=== PATIENT | male | born 2000 | race Caucasian/White ===

== ENCOUNTER 2022-01-31 20:02 | Outpatient (REF) | payer MEDICAID, SELFPAY ==
[2022-02-02 12:01] LABS: COVID-19 RT-PCR UVMMC Result Negative (Negative)
== END 2022-01-31 20:03 | disposition home or self-care (01) ==
LOC: LBN 20:02
PROVIDERS: Visit Provider Nurse Practitioner Family
DX: Z20.822 Contact with and (suspected) exposure to COVID-19 (principal); R68.89 Other general symptoms and signs
CPT/HCPCS: U0003

== ENCOUNTER → 2023-05-22 18:26 | Outpatient (CLI) | payer BC, MEDICAID, SELFPAY ==
--- NOTE | 2023-05-22 18:30 | DI.RAD_ITS ---
Exam(s) XR TOE LT FIFTH EXAM: XR TOE LT FIFTH CLINICAL HISTORY: r/o fx. TECHNIQUE: 2D digital imaging was performed. COMPARISON: No exams were available for comparison FINDINGS: 3 views There is a fracture on the medial aspect of the head of the proximal phalanx of the 5th toe. This vi olates the articular joint surface. No significant displacement. No radiopaque foreign body. No os seous lesions Incidentally noted is fusion across the DIP joint of the 5th toe. IMPRESSION: Nondisplaced fracture in the medial aspect of the head of the proximal phalanx DATA REPOSITORY: RADIATION DOSE DELIVERED:
== END ==
PROVIDERS: Visit Provider Nurse Practitioner Family
DX: S92.912D Unspecified fracture of left toe(s), subsequent encounter for fracture with routine healing (principal); X58.XXXD Exposure to other specified factors, subsequent encounter
CPT/HCPCS: 73660

== ENCOUNTER 2025-04-22 19:50 | Emergency (ER) | payer SELFPAY ==
[2025-04-22 19:52] VITALS: BP 153/83; PULSE 105; RESP 20; TEMP 36.8; O2SAT 98
--- NOTE | 2025-04-22 20:12 | W.ED.GENAD ---
Discharge Plan Disposition Patient Disposition: Home Condition: Stable Discharge Details Clinical Impression: Cellulitis of left hand Primary Care Provider: Sonia Gipson ED Provider: Frank Billingsley Home Meds and New Rx's Prescriptions: New sulfamethoxazole-trimethoprim 800-160 mg tablet 1 tab PO BID 7 Days Qty: 14 0RF Discharge Instructions Instructions: Sulfamethoxazole and Trimethoprim, Cellulitis (Skin Infection), Adult ED Additional Instructions: You were seen in the emergency department for the infection in your hand, we are starting you on an antibiotic called Bactrim, please take this as directed, watch for signs of increasing infection like increasing redness, drainage of pus from area, red streaking up the arm and fever, please double check with your primary care provider regarding your Tdap status and receive it as soon as possible if you are past 5 years. Discharge Data Discharge Date/Time-TO BE ENTERED AT DEPARTURE: 04/22/25 20:28 HPI General Date/Time Provider Initiated Documentation: 04/22/25 20:06. HPI Narrative: 25 year-old male presents to ED today by POV/ambulating with a chief complaint of brief puncture of metal object to L hand while at work with onset around 1230 today. Quality described as redness to the area, has a tiny puncture without foreign body sensation, no radiation to hernandez erythema, lymphadenitis, numbness/tingling, significant swelling. Severity is described as mild to moderate. Palliating factors include cleaned with soap & water. Provoking factors include nothing specific. Events leading up to the incident/Associated Symptoms: Patient unsure of his Tdap- but wants to check with his PCP before receiving an additional vaccine today. Patient not anticoagulated. Related Data Home Medications ?Medication ?Instructions ?Recorded ?Confirmed sulfamethoxazole 800 1 tab PO BID 7 days #14 tabs 04/22/25 mg-trimethoprim 160 mg tablet Previous Rx's ?Medication ?Instructions ?Recorded sulfamethoxazole 800 1 tab PO BID 7 days #14 tabs 04/22/25 mg-trimethoprim 160 mg tablet Allergies Allergy/AdvReac Type Severity Reaction Status Date / Time No Known Allergies Allergy Verified 05/22/23 17:24 General Stated Complaint: ForeignBody ELLEN: 4 Review of Systems All systems reviewed & are unremarkable except as noted in HPI and below Exam Narrative Exam Narrative: GENERAL APPEARANCE: Well-nourished, non-toxic, awake and alert, atraumatic, no acute distress. 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 EYES: Normal conjunctiva, no exudates on lids/lashes. ENT: Nares patent, no circumoral cyanosis, no facial swelling NECK: Supple, trachea midline, painless cervical ROM. LUNGS/CHEST: Non-labored respirations, normal A/P diameter, symmetrical expansion, no chest wall deformity HEART (CV/PV): No peripheral edema, no JVD. ABDOMEN: Soft, non-distended, no guarding. MSK: Normal ROM, no swelling/deformity to bilateral UEs or LEs, moving all extremities without weakness, no cyanosis, spine midline without tenderness, normal curvature. NEURO: Mental Status AAOx4 - alert to person, place, time, events No facial droop, no forehead involvement. Motor: No focal weakness - strength 5/5 in bilateral UEs and LEs, proximal and distal, symmetric. Sensory: sensation intact to light touch globally. Gait normal: patient ambulated without ataxia into ED room. PSYCH: euthymic, cooperative, pleasant, appropriate speech Course Vital Signs Vital signs: Vital Signs Temperature 36.8 C 04/22/25 19:52 Pulse 105 H 04/22/25 19:52 Respiratory Rate 20 04/22/25 19:52 Blood Pressure 153/83 H 04/22/25 19:52 Pulse Oximetry 98 04/22/25 19:52 Temperature 36.8 C 04/22/25 19:52 Temperature Source Oral 04/22/25 19:52 Pulse 105 H 04/22/25 19:52 Respiratory Rate 20 04/22/25 19:52 Blood Pressure 153/83 H 04/22/25 19:52 Blood Pressure Position Sitting 04/22/25 19:52 Pulse Oximetry 98 04/22/25 19:52 Oxygen Delivery Method Room Air 04/22/25 19:52 Oxygen Flow Rate 0 04/22/25 19:52 Pain Level 2 04/22/25 19:52 Medical Decision Making This dictation utilizes [id number] dictation software and may contain unedited grammatical errors. 25 year-old male presents to ED today by POV/ambulating with a chief complaint of brief puncture of metal object to L hand while at work with onset around 1230 today. Quality described as redness to the area, has a tiny puncture without foreign body sensation, no radiation to hernandez erythema, lymphadenitis, numbness/tingling, significant swelling. Severity is described as mild to moderate. Palliating factors include cleaned with soap & water. Provoking factors include nothing specific. Events leading up to the incident/Associated Symptoms: Patient unsure of his Tdap- but wants to check with his PCP before receiving an additional vaccine today. Patients' medical history: negative, otherwise healthy. Family and social history: noncontributory. Pertinent exam findings / vital signs include tiny puncture at palm of L hand, no hard foreign object to palpation, mild erythema without lymphadenitis, strength & ROM intact in L hand. Differential / pathologies of concern include cellulitis, puncture wound. Diagnostic studies of: -None- no FB sensation, no FB on palpation, very miniscule pinpoint puncture wound. Interventions of: -Rx for Bactrim. ED Course/Assessment/Plan: 25-year-old male presents with a brief puncture injury of his middle at work, has no foreign body sensation, has mild redness around the puncture site and some pain, did prescribe him Bactrim to prevent infection or any worsening of a possible early mild cellulitis, patient prefers to check with his primary care provider before receiving Tdap today, counseled on strict return criteria for any worsening signs of infection like increasing redness, red streaking up the hand, drainage of pus from the area. Findings not consistent with foreign body retained, severe cellulitis. Disposition of cellulitis of left hand. Patient verbalized understanding of the plan and return to ED criteria and engaged in shared decision making. Medical Records Medical records reviewed: Yes I reviewed the patient's medical records. PFSH All Active Problems (Updated 04/22/25 @ 20:22 by NATA Reynoso) Cellulitis of left hand (Acute) Social History Smoking/Tobacco Use Status: Never Smoking risk assessment performed?: Yes Alcohol Intake: current Alcohol Intake frequency: holidays/special occasions only Alcohol type: beer Drug use: Never Housing: apartment Do you feel safe at home: Yes Do you feel safe in your relationship?: Yes
== END 2025-04-22 20:28 | disposition home or self-care (01) ==
LOC: ER 20:34
PROVIDERS: Emergency Provider Physician Assistant; PCP Nurse Practitioner
DX: L03.114 Cellulitis of left upper limb (principal); Y99.0 Civilian activity done for income or pay
CPT/HCPCS: 99283 ×2